=== PATIENT | male | born 1975 ===

== ENCOUNTER 2025-06-02 15:16 | Emergency (ER) | payer MEDICAID, SELFPAY ==
[2025-06-02 15:22] VITALS: BP 161/83; PULSE 137; RESP 24; TEMP 36.2; O2SAT 98; BMI 22.7
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
[2025-06-02 15:30] VITALS: BP 147/104; PULSE 125; RESP 16; O2SAT 98
[2025-06-02 15:31] VITALS: O2SAT 98
[2025-06-02] MEDS: ONDANSETRON 2 MG/ML inj 4 MG IVP (15:38)
[2025-06-02] MEDS: MORPHINE 4 MG/ML INJ IVP (15:38)
[2025-06-02 16:00] VITALS: BP 148/90; PULSE 118; RESP 14; O2SAT 98
[2025-06-02 17:00] VITALS: BP 150/94; PULSE 107; RESP 14; O2SAT 98
== END 2025-06-02 18:08 | disposition home or self-care (01) ==
PROVIDERS: Emergency Provider Family Medicine
DX: T24.102A Burn of first degree of unspecified site of left lower limb, except ankle and foot, initial encounter (principal); T24.202A Burn of second degree of unspecified site of left lower limb, except ankle and foot, initial encounter; T24.111A Burn of first degree of right thigh, initial encounter; T20.16XA Burn of first degree of forehead and cheek, initial encounter; X06.2XXA Exposure to ignition of other clothing and apparel, initial encounter
CPT/HCPCS: 94761; 96361; 96374; 96375; 99283; 99284; 99285; A9270; J2270; J2405; J7030